=== PATIENT | female | born 1970 | race Caucasian/White ===

== ENCOUNTER 2020-01-08 08:18 | Outpatient (CLI) | payer OTHER ==
--- NOTE | 2020-01-08 10:49 | MRI ---
MRI Upper Ext Jt Lt WO Con History: Strain of left shoulder strain of left shoulder subsequent encounter Comparison: None. Findings: Biceps tendon: Extra articular biceps tendon is intact. Mild intra-articular tendinosis. Rotator cuff: Moderate undersurface partial tearing of the subscapularis superior fibers with interst itial type delamination. Mild bursal surface fraying supraspinatus and infraspinatus tendons. No full-thickness perforation. A rticular surface appears to be intact. Labrum: Volume loss of the anterior-inferior labrum. Intrasubstance tear throughout the superior labr um. Bones: Normal glenoid version. No fracture. No malalignment. No marrow contusion. Type I acromion wit h mild lateral downsloping. Muscles: Muscle signal and bulk is normal. Cartilage: No full-thickness chondral defect is appreciated. Soft tissues: Moderate subacromial/subdeltoid bursa effusion. Normal volume joint fluid. No edema wit hin the axillary pouch. Impression: 1. Superior labral anterior-posterior intrasubstance tear as well as volume loss from chronic tear of the anterior inferior labrum. 2. Mild bursal surface fraying of the supraspinatus and infraspinatus tendons without full-thickness perforation. Articular surface is intact. 3. Type I acromion with mild lateral downsloping and reactive subacromial/subdeltoid bursa effusion. 4. Moderate tendinosis and mild undersurface partial tearing of the superior fibers subscapularis.
== END 2020-01-08 08:19 | disposition home or self-care (01) ==
LOC: BICMRI 08:18
PROVIDERS: ATTEND Family Medicine
DX: S46.912D Strain of unspecified muscle, fascia and tendon at shoulder and upper arm level, left arm, subsequent encounter (principal); M75.82 Other shoulder lesions, left shoulder

== ENCOUNTER 2020-03-03 07:54 | Outpatient (CLI) | payer BC, OTHER ==
[2020-03-03 14:13] LABS: #Basophils 0.1 thou/uL (0.0-0.2); #Eosinphils 0.2 thou/uL (0.0-0.7); #Lymphocytes 3.1 thou/uL (1.20-3.40); #Monocytes 0.8 thou/uL (0.11-0.59); #Neutrophils 5.9 thou/uL (1.40-6.50); %Basophils 0.9 % (0.0-1.0); %Eosinophils 1.6 % (0.0-10.0); %Lymphocytes 30.6 % (21.0-51.0); %Monocytes 8.1 % (0.0-10.0); %Neutrophils 58.7 % (42.0-75.0); Hemoglobin 16.9 g/dL (12.0-16.0); Mean Corpuscular HGB CONC 32.2 g/dL (32.0-36.0); Mean Corpuscular Hemoglobin 31.3 pg (27.0-31.0); Mean Corpuscular Volume 97.3 fL (78.0-98.0); Platelet Count 437 thou/uL (130-400); RBC Distribution Width 12.1 % (11.5-14.5); Red Blood Cell (RBC) Count 5.41 mill/uL (4.20-5.40)
[2020-03-03 14:53] LABS: Anion Gap 17 mmol/L (10-20); BUN (Urea Nitrogen) 10 mg/dL (9.8-20.1); Calc. Creatinine Clearance 0 mL/min (70-130); Calcium 10.5 mg/dL (7.8-10.44); Carbon Dioxide 24 mmol/L (22-29); Chloride 104 mmol/L (98-107); Estimated GFR-MDRD 60; Glucose 80 mg/dL (70-105); Potassium 5.7 mmol/L (3.5-5.1); Sodium 139 mmol/L (136-145)
--- NOTE | 2020-03-03 15:02 | EKG ---
Test Reason : Blood Pressure : / mmHG Vent. Rate : 060 BPM Atrial Rate : 060 BPM P-R Int : 144 ms QRS Dur : 078 ms QT Int : 432 ms P-R-T Axes : 057 042 064 degrees QTc Int : 432 ms Normal sinus rhythm Septal infarct , age undetermined Abnormal ECG No previous ECGs available Confirmed by ALBARO TODD (2) on 03/03/2020 3:02:08 PM Referred By: IERO Confirmed By:ALBARO TODD
[2020-03-03 18:53] LABS: SARS-CoV-2 MS2 Positive; SARS-CoV-2 N Gene Negative; SARS-CoV-2 S Gene Negative; SARS-CoV-2 by NAA Not Detected (NotDetected); SARS-CoV-2 orf1ab Negative
== END 2020-03-03 07:55 | disposition home or self-care (01) ==
LOC: LABBT 07:54
PROVIDERS: ATTEND Orthopaedic Surgery
DX: Z01.818 Encounter for other preprocedural examination (principal); M75.102 Unspecified rotator cuff tear or rupture of left shoulder, not specified as traumatic; S43.402A Unspecified sprain of left shoulder joint, initial encounter; Z20.828 Contact with and (suspected) exposure to other viral communicable diseases
CPT/HCPCS: 80048; 85025; 87635; 93005; 93010; U0003

== ENCOUNTER 2020-03-06 07:18 | Day surgery (SDC) | payer OTHER ==
[2020-03-05 15:40] VITALS: BMI 32.2
[2020-03-06] MEDS ORDERED: Clindamycin/D5W 600 mg/50 ml Premix Bag ONE (08:06)
[2020-03-06] MEDS ORDERED: Fentanyl 100 MCG/2 ML VIAL ONE ×2 (08:09→09:40)
[2020-03-06] MEDS ORDERED: Midazolam HCl 2 mg/2 ml Vial ONE (08:09)
[2020-03-06] MEDS ORDERED: Fentanyl 100 MCG/2 ML VIAL IV PRN (09:10)
[2020-03-06] MEDS ORDERED: Ondansetron PF 4 MG/2 ML Vial IVP PRN (09:15)
[2020-03-06] MEDS ORDERED: Zolpidem Tartrate 5 MG TAB PO PRN (09:15)
[2020-03-06] MEDS ORDERED: Promethazine HCl 25 MG/ML VIAL IM PRN (09:15)
[2020-03-06] MEDS ORDERED: Ropivacaine 0.2% 550 ML 550 ML NERVE BLCK SCH (09:15)
[2020-03-06] MEDS ORDERED: Ondansetron PF 4 MG/2 ML Vial ONE ×2 (09:45→10:27)
[2020-03-06] MEDS ORDERED: PROPOFOL 200 MG/20 ML VIAL ONE (10:27)
[2020-03-06] MEDS ORDERED: Dexamethasone 20 MG/5 ML VIAL ONE (10:27)
[2020-03-06] MEDS ORDERED: Ropivacaine 0.2% HCl/PF (40 MG/20 ML VIAL) ONE (10:27)
[2020-03-06] MEDS ORDERED: Ropivacaine 0.5% HCl/PF (150 MG/30 ML VIAL) ONE (10:27)
[2020-03-06] MEDS ORDERED: Rocuronium Bromide 10 MG/ML (10ML VIAL) ONE (10:27)
[2020-03-06] MEDS ORDERED: Ketorolac Tromethamine 30 MG/ML VIAL ONE (10:27)
[2020-03-06] MEDS ORDERED: Glycopyrrolate 0.2 MG/ML 5 ML SYRINGE ONE (10:27)
[2020-03-06] MEDS ORDERED: PHENYLEPHRINE-NS 100 MCG/ML 10 ML SYRINGE ONE (10:27)
[2020-03-06] MEDS ORDERED: Lidocaine 1% PF 5 ML VIAL ONE (10:27)
[2020-03-06] MEDS ORDERED: Bupivacaine/Epinephrine 0.25% 30 ML VIAL ONE (10:28)
[2020-03-06] MEDS ORDERED: Ketorolac Tromethamine 30 MG/ML VIAL IVP SCH (12:00)
--- NOTE | 2020-03-06 20:16 | OP ---
DATE OF PROCEDURE: 03/06/2020 PREOPERATIVE DIAGNOSES: 1. Left shoulder partial cuff tear of the supraspinatus. 2. Degenerative superior labral anterior-posterior tear. 3. Impingement. POSTOPERATIVE DIAGNOSES: 1. Left shoulder partial cuff tear of the supraspinatus. 2. Degenerative superior labral anterior-posterior tear. 3. Impingement. PROCEDURES PERFORMED: 1. Left shoulder arthroscopy with subacromial decompression. 2. Debridement and shaving of partial rotator cuff tear as well as degenerative labral tear. 3. Open biceps tenodesis. RABBET OPERATOR: Farooq Hodge PA-C The carpenter assistant surgeon was present throughout the open biceps tenodesis portion of the procedure to include the approach, fixation of the biceps tendon, and closure. BLOOD LOSS: Minimal. COMPLICATIONS: None. The patient had general anesthetic as well as a preoperative block. IMPLANTS: We used a 7 x 23 Bio[employer]posite Bio-Tenodesis screw. She went to recovery room in stable condition. INDICATIONS FOR PROCEDURE: This is a 49-year-old female, who has had worker's comp injury of left shoulder for the better part of nearly a year and failed at this time to improve and is presenting for surgery. DESCRIPTION OF PROCEDURE: After all appropriate consent forms were explained and signed, she was taken to the operative room and at this time was given general anesthetic. Once the level of anesthesia was appropriate, she was rolled into the right lateral decubitus position with all bony prominences well padded. Axillary roll was placed underneath the right axilla, and a araujo bag was inflated to hold it in this position. The arm was then easily taken through full range of motion without any issues whatsoever and was then suspended with 10 pounds in standard arthroscopic fashion. The left shoulder and upper extremity were prepped and draped in standard surgical fashion. The bony anatomical landmarks were then drawn out, and the subacromial space was infiltrated with Marcaine with epinephrine. Posterior portal was established. Scope was placed into the shoulder joint. Anterior working portal was then made using a needle localization technique. Diagnostic arthroscopy commenced, and the articular surface of the humeral head and glenoid were found to be in excellent condition. Subscapularis was noted to be intact. There was a partial tear of the leading edge of supraspinatus. This was debrided with a shaver and was felt to be 25% or less of the tendon. Posterior to this, the tendon was completely normal. Axillary pouch showed no loose bodies. The anterior, inferior, and posterior labrum were in good condition. The superior labrum was found to have a degenerative SLAP tear. This was debrided, and at this time, an 18-gauge needle was used to vega the biceps tendon and place a stitch through. Arthroscopic scissors were then used to cut the biceps off the superior labral insertion. Once this was done, we repositioned the scope into the subacromial space. Lateral working portal was made, and at this time, the bursa was removed from off the underlying cuff, and [employer] and the shaver were used to perform a small anterior inferior subacromial decompression. Rotator cuff was evaluated thoroughly and felt to be completely intact. At this time, the scope was removed. Shoulder was drained. A 15 blade was used to incise the skin for open biceps tenodesis. Bovie was used to coagulate any brisk venous bleeding. Sharp dissection was used to get through the deltoid fascia, and the deltoid was split in line with its fibers to get down to the underlying transverse humeral ligament. This was opened up, and the biceps tendon was pulled out into the wound. The biceps was sutured. The intra-articular portion was removed and taken off the field. We then placed our wire reaming over top of this with a 7 mm reamer to a depth of 25. A 7 x 23 [employer] Bio-Tenodesis screw was then placed in standard fashion. Sutures were tied over top of this, so the screw could not back out. We then thoroughly irrigated and dried our wound and ran a Vicryl to close the deltoid fascia, 2-0 Vicryl and nylon sutures to close skin. The portal was then easily closed with a simple stitch as well. Bulky sterile dressing was applied. The patient was awakened. She was taken to recovery room in stable condition. All counts were correct at the end of the case, and she did receive preoperative IV antibiotics. Job ID: [id number]
== END 2020-03-06 14:30 | disposition home or self-care (01) ==
LOC: SDC 07:18
PROVIDERS: ATTEND Orthopaedic Surgery
PROC: 0RBK4ZZ Excision of Left Shoulder Joint, Percutaneous Endoscopic Approach (ICD-10-PCS; principal; 2020-03-06)
PROC: 0RNK4ZZ Release Left Shoulder Joint, Percutaneous Endoscopic Approach (ICD-10-PCS; principal; 2020-03-06)
PROC: 0LS40ZZ Reposition Left Upper Arm Tendon, Open Approach (ICD-10-PCS; principal; 2020-03-06)
PROC: 3E0T3BZ Introduction of Anesthetic Agent into Peripheral Nerves and Plexi, Percutaneous Approach (ICD-10-PCS; principal; 2020-03-06)
PROC: 0RHK04Z Insertion of Internal Fixation Device into Left Shoulder Joint, Open Approach (ICD-10-PCS; principal; 2020-03-06)
DX: S46.012A Strain of muscle(s) and tendon(s) of the rotator cuff of left shoulder, initial encounter (principal); S43.432A Superior glenoid labrum lesion of left shoulder, initial encounter; M25.812 Other specified joint disorders, left shoulder; G89.18 Other acute postprocedural pain; G56.02 Carpal tunnel syndrome, left upper limb; I11.9 Hypertensive heart disease without heart failure; E78.5 Hyperlipidemia, unspecified; I25.2 Old myocardial infarction; E03.9 Hypothyroidism, unspecified; M06.9 Rheumatoid arthritis, unspecified; F17.210 Nicotine dependence, cigarettes, uncomplicated; F41.9 Anxiety disorder, unspecified; E11.9 Type 2 diabetes mellitus without complications; E78.00 Pure hypercholesterolemia, unspecified; G89.29 Other chronic pain; Z86.73 Personal history of transient ischemic attack (TIA), and cerebral infarction without residual deficits; Z79.82 Long term (current) use of aspirin; Z79.84 Long term (current) use of oral hypoglycemic drugs; Z79.899 Other long term (current) drug therapy; Z88.0 Allergy status to penicillin; Z88.1 Allergy status to other antibiotic agents; Z91.048 Other nonmedicinal substance allergy status; Z95.5 Presence of coronary angioplasty implant and graft; X58.XXXA Exposure to other specified factors, initial encounter; Y99.0 Civilian activity done for income or pay
CPT/HCPCS: A4306; C1713; J1100; J1885; J2250; J2405; J2704; J2795; J3010; J3490

== ENCOUNTER 2020-03-08 10:55 | Day surgery (SDC) | payer BC, OTHER ==
[~2020-03-08 10:55] MED LIST: Ropivacaine 0.5% HCl/PF (150 MG/30 ML VIAL) ONE
== END 2020-03-08 12:55 | disposition home or self-care (01) ==
LOC: SDC/OP 10:55
PROVIDERS: ATTEND Anesthesiology
PROC: 3E0T3BZ Introduction of Anesthetic Agent into Peripheral Nerves and Plexi, Percutaneous Approach (ICD-10-PCS; principal; 2020-03-08)
DX: S46.012A Strain of muscle(s) and tendon(s) of the rotator cuff of left shoulder, initial encounter (principal); S43.432A Superior glenoid labrum lesion of left shoulder, initial encounter; M25.812 Other specified joint disorders, left shoulder
CPT/HCPCS: J2795